=== PATIENT | female | born 1985 | race Caucasian/White ===

== ENCOUNTER 2021-02-28 14:37 | Emergency (ER) | payer OTHER ==
[~2021-02-28] VITALS: Ht 165.1 cm; Wt 106.6 kg
[2021-02-28 15:01] VITALS: BP 153/93
--- NOTE | 2021-02-28 15:08 | NUR ---
PATIENT LEFT WITHOUT BEING SEEN BY DR. ZULUAGA. NO FURTHER CARE PROVIDED FOR PATIENT.
== END 2021-02-28 15:08 | disposition left against medical advice (07) ==
LOC: MED 14:37
DX: R10.9 Unspecified abdominal pain (principal); Z53.21 Procedure and treatment not carried out due to patient leaving prior to being seen by health care provider